=== PATIENT | female | born 1955 | race Caucasian/White ===

== ENCOUNTER → 2016-12-03 | Day surgery (SDC) | payer MEDICARE, OTHER | END | disposition home or self-care (01) | LOC: SDC 10:09 | DX: L98.8 Other specified disorders of the skin and subcutaneous tissue (principal); R22.42 Localized swelling, mass and lump, left lower limb; I10 Essential (primary) hypertension; G47.33 Obstructive sleep apnea (adult) (pediatric); E89.0 Postprocedural hypothyroidism; M19.90 Unspecified osteoarthritis, unspecified site; K21.9 Gastro-esophageal reflux disease without esophagitis; M79.7 Fibromyalgia; Z98.51 Tubal ligation status | CPT/HCPCS: J1885; J2704; J2765 ==